=== PATIENT | male | born 1945 | race Caucasian/White ===

== ENCOUNTER → 2017-12-25 | Outpatient (CLI) | payer MEDICARE, OTHER | LOC: COL.RAD 05:58 | DX: R14.0 Abdominal distension (gaseous) (principal) | CPT/HCPCS: A9537 ==

== ENCOUNTER → 2018-05-02 | Outpatient (CLI) | payer MEDICARE, OTHER | LOC: COL.RAD 08:15 | DX: D64.9 Anemia, unspecified (principal); R14.0 Abdominal distension (gaseous); K51.40 Inflammatory polyps of colon without complications ==

== ENCOUNTER → 2018-05-17 | Outpatient (CLI) | payer MEDICARE | LOC: COL.RAD 07:26 | DX: D12.6 Benign neoplasm of colon, unspecified (principal); D64.9 Anemia, unspecified; R14.0 Abdominal distension (gaseous) | CPT/HCPCS: A9541 ==